=== PATIENT | male | born 1995 ===

== ENCOUNTER 2018-02-26 11:45 | Emergency (ER) | payer OTHER ==
[2018-02-26 11:56] VITALS: BP 100/61
[2018-02-26] MEDS ORDERED: Lidocaine 1%* 5 ML VIAL INJ ONE (12:05)
--- NOTE | 2018-02-26 12:18 | ED ---
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 He states that this is been worsening over the course of the last week. He denies any fever, shakes or chills or redness up the toe. There is some drainage from the area. Tetanus shot is up-to-date. - History of Current Complaint Chief Complaint: UCLowerExtremity Stated Complaint: TOE COMPLAINT Time Seen by Provider: 02/26/18 12:00 Hx Obtained From: Patient Pain Intensity: 4 - Allergies/Home Medications Allergies/Adverse Reactions: Allergies Allergy/AdvReac Type Severity Reaction Status Date / Time No Known Allergies Allergy Verified 02/26/18 11:56 PMH/Surg Hx/FS Hx/Imm Hx Previously Healthy: Yes - Surgical History Surgery Procedure, Year, and Place: wisdom teeth extraction Infectious Disease History: No Infectious Disease History: Denies: Traveled Outside the [place] in Last 30 Days - Family History Known Family History: Negative: Cardiac Disease, Hypertension - Social History Occupation: Student Alcohol Use: None Substance Use Type: Reports: None Smoking Status (MU): Never Smoked Tobacco Review of Systems Negative: Fever, Chills Negative: Myalgia Positive: Rash, Other - drainage from big toe All Other Systems Reviewed And Are Negative: Yes Physical Exam Triage Information Reviewed: Yes Vital Signs On Initial Exam: Initial Vitals Temp Pulse Resp BP Pulse Ox 97.9 F 53 18 100/61 99 02/26/18 11:53 02/26/18 11:53 02/26/18 11:53 02/26/18 11:53 02/26/18 11:53 Vital Signs Reviewed: Yes Appearance: Positive: Well-Appearing, No Pain Distress, Well-Nourished Skin: Positive: Warm, Dry, Other - Left great toe medial nailfold tenderness, erythema, induration with discharge Respiratory/Lung Sounds: Positive: Clear to Auscultation Cardiovascular: Positive: RRR Musculoskeletal: Positive: Normal, Other - Great toe as above Neurological: Positive: Alert, Oriented to Person Place, Time Procedures - Incision and Drainage Left Toe Site: left great toe Anesthesia: Digital, Lidocaine - 8 cc 1% lidocaine Instrument(s): Other - medial one third of the nail plate was removed by blunt dissection with sharp scissors Packing: Other - no packing was placed. The wound was cleaned with soap and water and dressed with tube gauze. Diagnostics - Vital Signs Vital Signs Temp Pulse Resp BP Pulse Ox 02/26/18 11:53 97.9 F 53 18 100/61 99 - Laboratory Lab Statement: Any lab studies that have been ordered have been reviewed, and results considered in the medical decision making process. Lower Extremity Course/Dx - Course Course Of Treatment: Recurrent paronychia now with incision and drainage. Start antibiotics. - Diagnoses Provider Diagnoses: Paronychia of great toe of left foot Discharge - Sign-Out/Discharge Documenting (check all that apply): Patient Departure All imaging exams completed and their final reports reviewed: No Studies - Discharge Plan Condition: Improved Disposition: HOME Prescriptions: Ciprofloxacin TAB* [Cipro 500 MG TAB*] 500 mg PO BID #14 tab Patient Education Materials: Paronychia (ED) Forms: *Physical Education Release Referrals: [facility], [facility] [Provider Group] Additional Instructions: Warm compresses several times a day. Ibuprofen as needed. Return if worse, new symptoms or other concerns. - Billing Disposition and Condition Condition: IMPROVED Disposition: Home
== END 2018-02-26 12:47 | disposition home or self-care (01) ==
LOC: UCEAST 11:45
DX: L03.032 Cellulitis of left toe (principal)
CPT/HCPCS: 11730; 99202; G0463